=== PATIENT | male | born 1985 | race Caucasian/White ===

== ENCOUNTER 2020-03-08 17:14 | Emergency (ER) | payer OTHER, MEDICAID, SELFPAY ==
[2020-03-08 17:33] VITALS: BP 139/96; PULSE 74; RESP 16; TEMP 36.9; O2SAT 97; BMI 25.5
--- NOTE | 2020-03-08 17:35 | PC.NURSE ---
adderall 30mg daily Bupropion HCL XL 300mg daily clonazepam 1mg daily PRN Trazodone 150mg tablet daily
--- NOTE | 2020-03-08 19:44 | ED_ITS ---
HPI - Recheck/Abnormal Lab/Rx <KAL Galindo-BC - Last Filed: 03/08/20 19:47> General Chief Complaint: Recheck/Abnormal Lab/Rx Stated Complaint: MEDICATION REFILL Time Seen by Provider: 03/08/20 19:17 Source: patient Mode of arrival: Ambulatory Limitations: no limitations History of Present Illness HPI narrative: The patient is a 35-year-old male current smoker presents requesting refills of his medication including Wellbutrin, Adderall, trazodone, as well as clonazepam. He states he has been moving to and a [place], has been in town almost 2 months. He unfortunately slept through his appointment with his prescriber and they rescheduled him for April. He went to a urgent care and [place] last month for prescriptions. Related Data Home Medications Medication Instructions Recorded Confirmed dextroamphetamine-amphetamine 5 mg PO #0 09/22/16 [Adderall] trazodone 50 mg PO QDAY #0 09/22/16 Previous Rx's Medication Instructions Recorded omeprazole magnesium [Prilosec OTC] 20 mg PO QDAY #30 09/22/16 bupropion HCl 300 mg PO QAM #14 tab 03/08/20 trazodone 150 mg PO BEDTIME PRN #14 tab 03/08/20 Allergies Allergy/AdvReac Type Severity Reaction Status Date / Time No Known Drug Allergies Allergy Verified 03/08/20 17:33 Review of Systems <CAROLYN GalindoBC - Last Filed: 03/08/20 19:47> Review of Systems Narrative: GENERAL: Denies chills, fatigue, malaise, fever, sweats. HEENT: Denies sinus pain, ear pain, sore throat, difficulty swallowing, dizziness. RESPIRATORY: Denies dyspnea, cough, wheezing, hemoptysis, sputum. CARDIOVASCULAR: Denies chest pain, palpitations, orthopnea, edema, GASTROINTESTINAL: Denies nausea, vomiting, abdominal pain, diarrhea, constipation, melena. : Denies dysuria, frequency, incontinence, hematuria, urinary retention. MUSCULOSKELETAL: denies weakness, joint pain, or bony pain SKIN: Denies rash, skin lesions, or other NEUROLOGIC: Denies weakness, headache, numbness, change in speech, confusion, seizures, incoordination. PSYCHIATRIC: See HPI 12 point review of systems is negative except for those stated above Patient History <Jessica PEYTON Guy - Last Filed: 03/08/20 19:47> Social History Smoking Status: Current some day smoker Smoking Status: Current some day smoker Substance Use Type: marijuana Exam <Jessica PEYTON Guy - Last Filed: 03/08/20 19:47> Narrative Exam Narrative: GENERAL: This is a well-nourished, well-developed patient, in no acute distress HEAD: Atraumatic. Normocephalic. No temporal or scalp tenderness. EYES: Pupils equal round and reactive. Extraocular motions intact. No scleral icterus. No injection or drainage. ENT: Nose without bleeding, purulent drainage or septal hematoma. Wearing mask Airway patent. NECK: Trachea midline. No JVD or lymphadenopathy. Supple, nontender, no meningeal signs. CARDIOVASCULAR: Regular rate and rhythm RESPIRATORY: No cough.. No accessory muscle use no. No increased respiratory effort. EXTREMITIES: No clubbing, cyanosis, or edema. No joint tenderness, effusion, or edema noted. BACK: Nontender without deformity or crepitance. No flank tenderness. NEURO: AOx3. No gross cranial nerve deficit. SKIN: No rash or erythema on visible skin Initial Vital Signs Initial Vital Signs: Vital Signs Temperature 98.5 F 03/08/20 17:33 Pulse Rate 74 03/08/20 17:33 Respiratory Rate 16 03/08/20 17:33 Blood Pressure 139/96 H 03/08/20 17:33 Pulse Oximetry 97 03/08/20 17:33 <Grayson Guerrero DO - Last Filed: 03/08/20 22:48> Initial Vital Signs Initial Vital Signs: Vital Signs Temperature 98.5 F 03/08/20 17:33 Pulse Rate 74 03/08/20 17:33 Respiratory Rate 16 03/08/20 17:33 Blood Pressure 139/96 H 03/08/20 17:33 Pulse Oximetry 97 03/08/20 17:33 Scores <PEYTON Gailndo - Last Filed: 03/08/20 19:47> GCS Taj coma scale eye opening: Spontaneous Taj coma scale verbal response: Orientated Taj coma scale motor response: Obey commands Creede coma scale total score: 15 Course <PEYTON Galindo - Last Filed: 03/08/20 19:47> Vital Signs Vital signs: Vital Signs - 8 hr 03/08/20 17:33 Temperature 98.5 F Pulse Rate 74 Respiratory Rate 16 Blood Pressure 139/96 H Pulse Oximetry 97 <Grayson Guerrero DO - Last Filed: 03/08/20 22:48> Vital Signs Vital signs: Vital Signs - 8 hr 03/08/20 17:33 Temperature 98.5 F Pulse Rate 74 Respiratory Rate 16 Blood Pressure 139/96 H Pulse Oximetry 97 MDM - Recheck/Abnormal Lab/Rx <KAL Galindo- - Last Filed: 03/08/20 19:47> MDM Narrative Medical decision making narrative: The patient is a 35-year-old male who presents requesting medication refills. He is needed urine unfortunately slept through his appointment with his prescriber. I was willing to prescribe the patient some trazodone as well as his Wellbutrin for 2 weeks. This should give him enough time to follow up with primary care provider given contact information to the [facility] natural resources extension educator to help arrange a PCP. Unfortunately it is against department policy to refill chronic controlled medication prescriptions. I discussed this with Dr. Guerrero as well, who states that I should not refill the patient's Adderall or clonazepam medications. I encouraged him to follow up with primary care provider given contact information at [facility] resources extension educ[facility]. Discussed coming back to the ER for any acute concerns. Patient has no questions or concerns upon discharge and states understanding of return precautions as well as follow-up care. Discharge Plan Departure Patient Disposition: Home Clinical Impression: Encounter for medication refill Discharge Date/Time: 03/08/20 19:48 Instructions: DI for Safely Taking and Storing Medications -- Adults Activity Restrictions/Additional Instructions: Thank you for trusting us with your care today I sent 2 prescriptions to [facility]. As discussed, I have given you contact information [facility] natural resources extension educator. They can help you arrange a primary care provider in the area. Please come back to the emergency department for any acute concerns Prescriptions: New bupropion HCl 300 mg tablet extended release 24 hr 300 mg PO QAM Qty: 14 RF: 0 trazodone 150 mg tablet 150 mg PO BEDTIME PRN (Reason: insomnia) Qty: 14 RF: 0 No Action trazodone 50 MG tablet 50 mg PO QDAY Qty: 0 RF: 0 dextroamphetamine-amphetamine [Adderall] 5 MG tablet 5 mg PO Qty: 0 RF: 0 omeprazole magnesium [Prilosec OTC] 20 MG tablet,delayed release (DR/EC) 20 mg PO QDAY Qty: 30 RF: 0 Referrals: [facility] [Outside] <Grayson Guerrero, DO - Last Filed: 03/08/20 22:48> Cosign ED Attending Cosignature Attestation: Dr Guerrero Co-Sign Statement: I was available for consultation during this patient's emergency department visit. This chart is signed by myself for administrative purposes only. I did not have direct contact with this patient during this visit. They were seen independently by the APC.
== END 2020-03-08 19:48 | disposition home or self-care (01) ==
PROVIDERS: Emergency Provider Nurse Practitioner Family
DX: Z76.0 Encounter for issue of repeat prescription (principal)
CPT/HCPCS: 99281